=== PATIENT | female | born 1990 | race Caucasian/White ===

== ENCOUNTER 2017-04-03 09:18 | Emergency (ER) | payer OTHER ==
--- NOTE | 2017-04-03 11:15 | ED ORDER SUMMARY ---
..... Patient: RONNIE LAND OrderSheet [facility] VisitID: [id number] [place] [address] 26y, F Registration Date/Time: 04/03/2017 ORDER SHEET Weight: 92.0 kg (stated) Allergies: No Known Drug Allergy GENERAL ORDERS: Mastic Man (Continuous) ([facility] (9:46 PWeiler ER Tech1) UA-Culture if indicated Urgent (04/03/2017 [facility]) (Ack 9:33 PWeiler ER Tech1) (10:00 LWhalen R.N.) BNP Urgent ([facility]/03/2017 [facility] (Ack 9:33 PWeiler ER Tech1) (10:00 LWhalen R.N.) D-Dimer Urgent (04/03/2017 [facility] (Ack 9:33 PWeiler ER Tech1) (10:00 LWhalen R.N.) Amylase Urgent (04/03/2017 [facility] (Ack 9:33 PWeiler ER Tech1) (10:00 LWhalen R.N.) CMP Urgent (04/03/2017 [facility]) (Ack 9:33 PWeiler ER Tech1) (10:00 LWhalen R.N.) CBC w Diff Urgent (04/03/2017 [facility] (Ack 9:33 PWeiler ER Tech1) (10:00 LWhalen R.N.) Urine Drug Screen Urgent (04/03/2017 [facility]) (Ack 9:33 PWeiler ER Tech1) (10:00 LWhalen R.N.) Urine Urgent (04/03/2017 [facility]) (Ack 9:33 PWeiler ER Tech1) (10:00 LWhalen R.N.) TSH Urgent (04/03/2017 [facility]) (Ack 9:33 PWeiler ER Tech1) (10:00 LWhalen R.N.) Ethyl Alcohol Urgent (09:30 04/03/2017 [facility]) (Ack 9:33 PWeiler ER Tech1) (10:00 LWhalen R.N.) Oxygen (2 L/min) (NC) (09:30 04/03/2017 [facility]) (10:00 LWhalen R.N.) Pulse oximeter (:04/03/2017 [facility]) (9:46 PWeiler ER Tech1) EKG - ER Stat (:04/03/2017 [facility]) (9:46 [facility] Vitals (09:04/03/2017 [facility]) (10:00 LWhalen R.N.) MEDICATION ORDERS: Potassium Chloride PO 20 meq (NOW) (10:57 04/03/2017 [facility]) (11:01 Arlen R.N.) Nitrofurantoin PO 100 mg (NOW) (11:14 04/03/2017 [facility]) (11:18 Ashly R.N.) IV FLUIDS: IV NS : initial bolus 1000 mL (1000 mL/hr), then 500 mL/hr for X2 (NOW) (09:30 04/03/2017 [facility]) (10:01 Ashly R.N.) ORDER SHEET NOTES: [Electronically signed by Bhavya King R.N. (11:42 04/03/2017)] [Electronically signed by Henrik Arciniega DO (12:42 04/03/2017)] [Electronically locked/signed by Bhavya King R.N. (11:42 04/03/2017)]
--- NOTE | 2017-04-03 11:15 | ED CLINICAL REPORT ---
Clinical Report - Physicians/Mid Levels [facility] [address] [place] [address] 04/03/2017 9:18 Patient: RONNIE LAND Time Seen: 09:26. Arrived- By ambulance. Historian- patient and EMS personnel. HISTORY OF PRESENT ILLNESS Chief Complaint: ANXIOUS. This started last night. The patient has experienced situational problems related to significant other. (Was drinking last night and states had three beers. Woke up feeling weird like possibly drugged. Was having panic attacks since woke up. Went to work at [employer] and called 911 because she began another panic attack along with tingling in legs and hands states just doesn't feel right.). The patient has had anxiety. Has been depressed (recent break up with her child's father) with fatigue. No suicidal thoughts, self-injury inflicted or hallucinations. The symptoms are described as moderate. Similar symptoms previously: Recent medical care: The patient was seen recently by a health care provider. REVIEW OF SYSTEMS No headache, chest pain, palpitations, abdominal pain or vomiting. No diarrhea, black stools, numbness, fever or sore throat. No cough, difficulty breathing, urinary frequency, skin rash or joint pain. No laceration. The patient has had generalized weakness. All systems otherwise negative, except as recorded above. PAST HISTORY No history of HIV illness, tuberculosis, hypertension or diabetes mellitus. History of migraine headaches. Seizures. Anxiety. Surgeries: No history of previous surgery. SOCIAL HISTORY Smoker- current status unknown. Occasional alcohol use. No drug use. Has social support. ADDITIONAL NOTES The nursing notes have been reviewed. PHYSICAL EXAM Vital Signs: 04/03/2017 09:20 BP: 130/75. HR: 113. RR: 16. O2 saturation: 100%. Temp: 98.9 F. Appearance: Alert. Patient is in mild distress. Eyes: Corneas appear normal to inspection. Pupils equal, round and reactive to light and light. Accommodation normal. EOMs intact. No scleral icterus. Rt Eye: Pupil 5mm. Lt Eye: Pupil 5mm. Neck: Normal inspection. Neck supple. No meningeal signs or carotid bruit. CVS: Tachycardia. Heart sounds normal. Respiratory: Breath sounds normal. Chest nontender. Abdomen: Soft and nontender. Back: No tenderness. Skin: Skin warm and dry. Normal skin color. Normal skin turgor. Extremities: Extremities exhibit normal ROM. No calf tenderness. No lower extremity edema. Psych / Neuro: Oriented X 3. Blunted affect. She is communicative. Cognition normal. Thought process and content normal. Insight and judgement normal. Cranial nerves normal (as tested). No motor deficit. No sensory deficit. Reflexes normal. Reflex exam: right biceps 2+, left biceps 2+, right patellar 2+, left patellar 2+, right Achilles 2+ and left Achilles 2+. LABS, X-RAYS, AND EKG EKG: EKG time: (09:42). Narrow-complex tachycardia (ventricular rate 110). Sinus tachycardia. Normal P waves. Normal RAY. Normal QRS complex. Normal axis. Normal ST and T waves. The study has been interpreted contemporaneously by me. The EKG appears to be a good tracing. Rhythm Strip #1: Sinus tachycardia (ventricular rate 110). Regular rhythm. Narrow QRS complexes. No ectopy. Normal ST segments and T waves. Laboratory Tests: UA-Culture if indicated: (YOHANA: 04/03/2017 09:55) ( MsgRcvd 04/03/2017 10:15) Final results Test Result Flag Units (Reference) URINE COLOR YELLOW URINE APPEARANCE CLEAR URINE GLUCOSE NEGATIVE (NEGATIVE) URINE BILIRUBIN NEGATIVE (NEGATIVE) URINE KETONE NEGATIVE (NEGATIVE) URINE SPECIFIC GRAVITY 1.010 (1.010-1.030) URINE PH 7.5 (5.0-8.0) URINE PROTEIN NEGATIVE (NEGATIVE) URINE UROBILINOGEN 0.2 EU/dL (0.2-1.0) URINE NITRITE NEGATIVE (NEGATIVE) URINE BLOOD 1+ (NEGATIVE) URINE LEUK ESTERASE TRACE (NEGATIVE) URINE RBC 1-3 rbc/hpf (0-1) URINE WBC 1-3 wbc/hpf (0-1) URINE EPITHELIAL CELLS 1-3 EPI/hpf (0-5) URINE BACTERIA TRACE (<1+) (NONE SEEN) URINE COMMENT CULTURE INDICATED URINE CULTURES ARE SET-UP BASED ON THE FOLLOWING CRITERIA:POSITIVE NITRITEPOSITIVE LEUKOCYTE ESTERASEGREATER THAN 10 WHITE BLOOD CELLSMODERATE (2+) OR GREATER BACTERIA Urine: (YOHANA: 04/03/2017 09:55) ( [facility] 04/03/2017 10:09) Final results Test Result Flag Units (Reference) URINE NEGATIVE CBC w Diff: (YOHANA: 04/03/2017 09:50) ( [facility] 04/03/2017 10:09) Final results Test Result Flag Units (Reference) WHITE BLOOD COUNT 11.5 K/uL (4.5-11.5) RED BLOOD COUNT 4.28 M/uL (4.00-5.20) HEMOGLOBIN 10.8 L gm/dL (12.0-16.0) HEMATOCRIT 32.8 L % (36.0-46.0) MEAN CELL VOLUME 77 L fL (80-100) MEAN CORPUSCULAR HGB 25 L pg (26-34) MEAN CORPUSCULAR HGB CONC 33 g/dL (31-37) RED CELL DISTRIBUTION WIDTH 17.2 H % (11.6-14.8) PLATELET COUNT 410 H K/uL (150-400) NEUTROPHIL % 67.0 % (50-75) LYMPH % 26.3 % (25-40) MONO % 5.9 % (3-14) EOSINOPHIL % 0.4 % (0-4) BASOPHIL % 0.4 % (0-2) [id number]: (YOHANA: 04/03/2017 09:50) ( [facility] 04/03/2017 10:19) Final results Test Result Flag Units (Reference) D-DIMER QUANTITATIVE 0.35 ug/mLFEU (0.27-0.52) The primary value of this quantitative assay relates toits negative predictive value (i.e. exclusion) of pulmonaryembolism/deep vein thrombosis/DIC.Elevated levels of d-dimer may also occur with:, age, cancer, inflammation, liver disease,post-op, infection, hematoma, coronary disease, peripheralarteriopathy, bleeding disorders and thrombolytic treatment.Results should be correlated with other clinical andradiological data.Testing Methodology: Latex Immunoassay Urine Drug Screen: (YOHANA: 04/03/2017 09:55) ( [facility] 04/03/2017 10:22) Final results Test Result Flag Units (Reference) AMPHETAMINE/METHAMPHETAMINE NEGATIVE (NEGATIVE) BARBITURATE NEGATIVE (NEGATIVE) BENZODIAZEPINE NEGATIVE (NEGATIVE) CANNABINOID NEGATIVE (NEGATIVE) COCAINE POSITIVE H (NEGATIVE) ECSTASY NEGATIVE (NEGATIVE) METHADONE NEGATIVE (NEGATIVE) OPIATE NEGATIVE (NEGATIVE) The urine drug screen is a qualitative screening test fordrug overdose and abuse. All screen results should beconsidered as presumptive.Drugs screened for are as follows:BenzodiazepinesCocaineAmphetamines/MetamphetaminesTHC (Tetrahydrocannabinol)OpiatesBarbituratesEcstasyMethadonePositive results are unconfirmed. For confirmation, notifythe lab for the specimen to be sent to the reference lab.All confirmations must be performed by a differentmethodology.The ingestion of natural herbal and plant productscontaining Ephedra/Ephedra metabolites can produce in urineone or more substances capable of cross reacting withamphetamine/methamphetamine immunoassays. These testsprovide a preliminary result only. A more specificalternative chemical method must be used to obtain aconfirmed analytical result. BNP: (YOHANA: 04/03/2017 09:50) ( [facility] 04/03/2017 10:31) Final results Test Result Flag Units (Reference) B-TYPE NATRIURETIC PEPTIDE 9.6 pg/ml (5-100) CMP: (YOHANA: 04/03/2017 09:50) ( [facility] 04/[facility] 10:27) Final results Test Result Flag Units (Reference) GLUCOSE 91 mg/dL (70-110) BUN 6 L mg/dL (7-18) CREATININE 1.0 mg/dL (0.6-1.3) Estimated GFR >60 mL/min Estimated GFR- >60 mL/min Note: Persistent reduction over 3 months in eGFR<60 mL/min/1.73 m2 defines CKD. Patients with eGFR values>=60 mL/min/1.73 m2 may also have CKD if evidence ofpersistent proteinuria. Additional information may be foundat www.kidney.org. SODIUM 143 mmol/L (136-145) POTASSIUM 3.1 L mmol/L (3.5-5.1) CHLORIDE 107 mmol/L (98-107) CARBON DIOXIDE 25 mmol/L (21-32) CALCIUM 8.9 mg/dL (8.5-10.1) TOTAL PROTEIN 7.7 g/dL (6.4-8.2) ALBUMIN 4.1 g/dL (3.3-5.0) BILIRUBIN, TOTAL 0.3 mg/dL (0.0-1.0) ALKALINE PHOSPHATASE 79 U/L (46-116) AST (SGOT) 25 U/L (15-37) ALT (SGPT) 30 U/L (12-78) AMYLASE 48 U/L (25-115) ETHYL ALCOHOL 24 H mg/dL (3-10) THYROID STIMULATING HORMONE 0.706 uIU/mL (0.34-3.74) . Microbiology: Urine culture ordered. Pulse Oximetry: 04/03/2017 09:20 O2 saturation: 100%. (FIO2 - room air). Interpretation: normal. PROGRESS AND PROCEDURES Course of Care: Nitrofurantoin 100 mg PO given. Normal Saline 1 liter IVPB given. Pt states she is not aware how cocaine could be in her urin, but it is likely to be causing / exacerbating her anxiety, hyperventilation and tachycardia (alcohol level stil 0.24 despite stating no alcohol since early last night - this is a complicating factor). No chest pain, sob, abdominal pain and no dysuria, but has subtle evidence of UTI - will culture and treat. Patient/family counseled. Disposition: Discharged. Condition: stable and improved. CLINICAL IMPRESSION Anxiety reaction with hyperventilation. Occasional substance abuse- tobacco (cigarettes), cocaine with anxiety. Hypokalemia Possible acute urinary tract infection with cystitis. INSTRUCTIONS Do not work for three days. Drink plenty of fluids. Do not smoke. No alcohol until released. Warnings: Further evaluation is necessary in order to conduct further tests. It is very important to follow up with a physician. GENERAL WARNINGS: Return or contact your physician immediately if your condition worsens or changes unexpectedly, if not improving as expected, or if other problems arise. Prescription Medications: Macrobid 100 mg: take 1 capsule orally every 12 hours for 3 days. No refill. Substitution is permissible. OTC Medications: Acetaminophen (available over the counter): take according to label instructions. Motrin (available over the counter): take according to label instructions. Follow-up: Follow up with your doctor tomorrow. (Electronically signed by Henrik Arciniega DO 04/03/2017 12:42)
--- NOTE | 2017-04-03 11:15 | ED ORDER SUMMARY ---
..... Patient: RONNIE LAND OrderSheet [facility] VisitID: [id number] [place] [address] 26y, F Registration Date/Time: 04/03/2017 ORDER SHEET Weight: 92.0 kg (stated) Allergies: No Known Drug Allergy GENERAL ORDERS: Marine Chronometer Assembler (Continuous) ([facility]03/2017 [facility] (9:46 PWeiler ER Tech1) UA-Culture if indicated Urgent (04/03/2017 [facility]) (Ack 9:33 PWeiler ER Tech1) (10:00 LWhalen R.N.) BNP Urgent ([facility]/03/2017 [facility] (Ack 9:33 PWeiler ER Tech1) (10:00 LWhalen R.N.) D-Dimer Urgent (04/03/2017 [facility]) (Ack 9:33 PWeiler ER Tech1) (10:00 LWhalen R.N.) Amylase Urgent ([facility]/03/2017 [facility] (Ack 9:33 PWeiler ER Tech1) (10:00 LWhalen R.N.) CMP Urgent (04/03/2017 [facility]) (Ack 9:33 PWeiler ER Tech1) (10:00 LWhalen R.N.) CBC w Diff Urgent (04/03/2017 [facility]) (Ack 9:33 PWeiler ER Tech1) (10:00 LWhalen R.N.) Urine Drug Screen Urgent (04/03/2017 [facility]) (Ack 9:33 PWeiler ER Tech1) (10:00 LWhalen R.N.) Urine Urgent (04/03/2017 [facility]) (Ack 9:33 PWeiler ER Tech1) (10:00 LWhalen R.N.) TSH Urgent (04/03/2017 [facility]) (Ack 9:33 PWeiler ER Tech1) (10:00 LWhalen R.N.) Ethyl Alcohol Urgent (09:30 04/03/2017 [facility]) (Ack 9:33 PWeiler ER Tech1) (10:00 LWhalen R.N.) Oxygen (2 L/min) (NC) (09:30 04/03/2017 [facility]) (10:00 LWhalen R.N.) Pulse oximeter (:04/03/2017 [facility]) (9:46 PWeiler ER Tech1) EKG - ER Stat (:04/03/2017 [facility]) (9:46 [facility]) Vitals (09:04/03/2017 [facility]) (10:00 LWhalen R.N.) MEDICATION ORDERS: Potassium Chloride PO 20 meq (NOW) (10:57 04/03/2017 [facility]) (11:01 Arlen R.N.) Nitrofurantoin PO 100 mg (NOW) (11:14 04/03/2017 [facility]) (11:18 Ashly R.N.) IV FLUIDS: IV NS : initial bolus 1000 mL (1000 mL/hr), then 500 mL/hr for X2 (NOW) (09:30 04/03/2017 [facility]) (10:01 Ashly R.N.) ORDER SHEET NOTES: [Electronically signed by Bhavya King R.N. (11:42 04/03/2017)] [Electronically signed by Henrik Arciniega DO (12:42 04/03/2017)] [Electronically locked/signed by Bhavya King R.N. (11:42 04/03/2017)]
--- NOTE | 2017-04-03 11:15 | ED NURSING NOTES ---
Clinical Report - Nurses [facility] [address] [place] [address] 04/03/2017 9:18 Patient: RONNIE LAND TRIAGE Triage time 09:Apr 03 2017. Acuity: LEVEL 3. Chief Complaint: ANXIETY. LUIS COMA SCORE: Hayes Coma Scale: 15- eyes open spontaneously (4); best verbal response- oriented x 4 (5); best motor response- obeys commands (6). --09:34 Bhavya King R.N. 09:20 04/03/17. BP: 130/75. HR: 113. RR: 16. O2 saturation: 100%. Temp: 98.9 F. Pain level now 0/10. --09:34 Bhavya King R.N. Weight: 92 kg stated. Height/Length: 67 inches Per Patient. BMI: 31.8. --09:33 Bhavya King R.N. Medications None. --09:27 Bhavya King R.N. Allergies No Known Drug Allergy. --11:02 Darion Ibarra R.N. History Arrived by EMS. Historian: patient. Onset: just prior to arrival. ( Was drinking last night and states had three beers. Woke up feeling weird like possibly drugged. Was having panic attacks since woke up. Went to work at [employer] and called 911 because she began another panic attack along with tingling in legs and hands states just doesn't feel right. Patient has increased stress currently.). She has had anxiety. PAST MEDICAL HX: Anxiety. Uses an intrauterine device. SOCIAL HX: Current every day heavy tobacco smoker (cigarette)- less than 1 pack per day. Occasional alcohol use. No drug use. SELF HARM ASSESSMENT: A self harm assessment was performed. The patient answered "yes" to the question "Have you recently felt down, depressed, or hopeless?" and "no" to the question "Do you have thoughts of harming or killing yourself?". FALL RISK ASSESSMENT: Fall risk assessment completed. No fall risk identified. NUTRITIONAL RISK ASSESSMENT: The nutritional risk assessment revealed no deficiencies. FUNCTIONAL ASSESSMENT: Functional assessment: no impairments noted. LEARNING NEEDS ASSESSMENT: The learning needs assessment revealed no barriers. ABUSE ASSESSMENT: Abuse assessment: (yes) The patient was asked "Do you feel safe in your home?". SKIN INTEGRITY ASSESSMENT: Skin integrity risk assessment completed. No skin integrity risk identified. --09:34 Bhavya King R.N. PROBLEMS: Migraine Headache. Seizure. --09:30 Bhavya King R.N. ADDITIONAL SURGERIES: no known surgeries. Interventions ID band on patient. --09:34 Bhavya King R.N. PHYSICAL ASSESSMENT Ambulatory to room. GENERAL / NEURO / PSYCH: Alert. Oriented X 4. Appears anxious. Patient's mood/affect appears flat and tearful. Patient appears calm and cooperative. Good eye contact. ( Jaw moving fast with talking, lots of lip smacking. Dilated pupils). CVS: Normal heart rate and rhythm. Capillary refill less than 2 seconds. GI / : Abdomen soft and nontender. Bowel sounds within normal limits. SKIN: Skin intact. Skin is warm and dry. Skin color is within normal limits. --09:36 Bhavya King R.N. NURSING PROGRESS NOTES The initial plan of care for this patient includes an assessment with efforts to address patient positioning, appropriate ambient lighting and comfortable environmental temperature. Pulse oximeter and NIBP monitor placed on patient. Patient gowned. Head of bed elevated 45 degrees. Reassurance given. Call light placed in reach. Side rails up x 1. Bed placed in lowest position. Brakes of bed on. --09:37 Bhavya King R.N. EKG time: (941). EKG was ordered, performed by lesvia oliva and shown to the ED physician. --09:53 Henrik Lopez ER Tech1 09:51 04/03/2017 Site #1 started via IV in the right hand with an 20g angiocath, with aseptic technique and good blood return; one attempt. Blood drawn: rainbow set. Labeled in the presence of the patient and sent to the lab. Saline lock flushed with 10 mL saline. --10:01 Bhavya King R.N. 09:56 04/03/2017 Started bag #1 1000 mL IV Fluids IV NS (Saline); at 1000 mL/hr over 1 hour(s) via site #1 via IV pump. Allergies verified and confirmed 5 rights. IV patency established. IV site checked: no pain, redness, or swelling. IV flushed thoroughly pre- and post-medication administration. --10:01 Bhavya King R.N. 10:30 04/03/17. BP: 119/65. HR: 109. RR: 14. O2 saturation: 100% on nasal cannula at 2 liters/minute. Temp: deferred. Pain level now: 0/10. Additional comments: resting quietly, declined blanket . --10:45 Lidia Christopher R.N. 10:54 04/03/2017 IV Fluids IV NS Bag Change: bag #1 completed. Total amount infused: 1000. STARTED bag #2 (1000 mL) at 500 mL/hr via IV pump. IV patency established. IV site checked: no pain, redness, or swelling. IV flushed thoroughly. --10:54 Darion Ibarra R.N. 11:01 04/03/2017 Potassium Chloride (Potassium Chloride ER) PO Tablets 20 meq given. Allergies verified and confirmed 5 rights. --11:01 Darion Ibarra R.N. 11:18 04/03/2017 Nitrofurantoin PO Tablets 100 mg given. Allergies verified and confirmed 5 rights. --11:18 Bhavya King R.N. 11:32 04/03/17. BP: 119/66. HR: 110. RR: 22. O2 saturation: 100%. Temp: 98.4 F. Pain level now 0/10. 11:00 04/03/17. BP: 119/70. HR: 111. RR: 12. O2 saturation: 100%. 10:45 04/03/17. BP: 119/65. HR: 110. RR: 11. O2 saturation: 100%. 10:30 04/03/17. BP: 119/65. HR: 109. RR: 14. O2 saturation: 100% on nasal cannula at 2 liters/minute. Temp: deferred. Pain level now: 0/10. Additional comments: resting quietly, declined blanket . 10:15 04/03/17. BP: 121/69. HR: 114. RR: 22. O2 saturation: 100%. 10:00 04/03/17. BP: 120/67. HR: 112. RR: 20. O2 saturation: 100%. --11:40 Bhavya King R.N. 11:26 04/03/2017 Site #1 removed upon discharge. Catheter intact. Pressure dressing applied. --11:41 Bhavya King R.N. 11:26 04/03/2017 IV Fluids IV NS Discontinued: bag #2 infused upon discharge. Total amount infused: 400 mL. IV patency established. IV site checked: no pain, redness, or swelling. IV flushed thoroughly. --11:41 Bhavya King R.N. DISPOSITION / DISCHARGE Departure time: 11:Apr 03 2017. Condition at departure: improved. No learning barriers present. Discharge instructions provided and reviewed with the patient. Reviewed warnings. Reviewed medication(s). Treatments reviewed. Reviewed referrals. Patient verbalized understanding. Written instructions provided in Belgian. The patient was discharged home and accompanied by parent. She left the Emergency Department ambulatory and via private vehicle. Parent driving. --11:37 Bhavya King R.N. 11:32 04/03/17. BP: 119/66. HR: 110. RR: 22. O2 saturation: 100%. Temp: 98.4 F. Pain level now 0/10. --11:37 Bhavya King R.N. Locked/Released at 04/03/2017 11:42 by Bhavya King R.N.
--- NOTE | 2017-04-03 11:15 | ED CLINICAL REPORT ---
Clinical Report - Physicians/Mid Levels [facility] [address] [address] 04/03/2017 9:18 Patient: RONNIE LAND Time Seen: 09:26. Arrived- By ambulance. Historian- patient and EMS personnel. HISTORY OF PRESENT ILLNESS Chief Complaint: ANXIOUS. This started last night. The patient has experienced situational problems related to significant other. (Was drinking last night and states had three beers. Woke up feeling weird like possibly drugged. Was having panic attacks since woke up. Went to work at [employer] and called 911 because she began another panic attack along with tingling in legs and hands states just doesn't feel right.). The patient has had anxiety. Has been depressed (recent break up with her child's father) with fatigue. No suicidal thoughts, self-injury inflicted or hallucinations. The symptoms are described as moderate. Similar symptoms previously: Recent medical care: The patient was seen recently by a health care provider. REVIEW OF SYSTEMS No headache, chest pain, palpitations, abdominal pain or vomiting. No diarrhea, black stools, numbness, fever or sore throat. No cough, difficulty breathing, urinary frequency, skin rash or joint pain. No laceration. The patient has had generalized weakness. All systems otherwise negative, except as recorded above. PAST HISTORY No history of HIV illness, tuberculosis, hypertension or diabetes mellitus. History of migraine headaches. Seizures. Anxiety. Surgeries: No history of previous surgery. SOCIAL HISTORY Smoker- current status unknown. Occasional alcohol use. No drug use. Has social support. ADDITIONAL NOTES The nursing notes have been reviewed. PHYSICAL EXAM Vital Signs: 04/03/2017 09:20 BP: 130/75. HR: 113. RR: 16. O2 saturation: 100%. Temp: 98.9 F. Appearance: Alert. Patient is in mild distress. Eyes: Corneas appear normal to inspection. Pupils equal, round and reactive to light and light. Accommodation normal. EOMs intact. No scleral icterus. Rt Eye: Pupil 5mm. Lt Eye: Pupil 5mm. Neck: Normal inspection. Neck supple. No meningeal signs or carotid bruit. CVS: Tachycardia. Heart sounds normal. Respiratory: Breath sounds normal. Chest nontender. Abdomen: Soft and nontender. Back: No tenderness. Skin: Skin warm and dry. Normal skin color. Normal skin turgor. Extremities: Extremities exhibit normal ROM. No calf tenderness. No lower extremity edema. Psych / Neuro: Oriented X 3. Blunted affect. She is communicative. Cognition normal. Thought process and content normal. Insight and judgement normal. Cranial nerves normal (as tested). No motor deficit. No sensory deficit. Reflexes normal. Reflex exam: right biceps 2+, left biceps 2+, right patellar 2+, left patellar 2+, right Achilles 2+ and left Achilles 2+. LABS, X-RAYS, AND EKG EKG: EKG time: (09:42). Narrow-complex tachycardia (ventricular rate 110). Sinus tachycardia. Normal P waves. Normal RAY. Normal QRS complex. Normal axis. Normal ST and T waves. The study has been interpreted contemporaneously by me. The EKG appears to be a good tracing. Rhythm Strip #1: Sinus tachycardia (ventricular rate 110). Regular rhythm. Narrow QRS complexes. No ectopy. Normal ST segments and T waves. Laboratory Tests: UA-Culture if indicated: (YOHANA: 04/03/2017 09:55) ( MsgRcvd 04/03/2017 10:15) Final results Test Result Flag Units (Reference) URINE COLOR YELLOW URINE APPEARANCE CLEAR URINE GLUCOSE NEGATIVE (NEGATIVE) URINE BILIRUBIN NEGATIVE (NEGATIVE) URINE KETONE NEGATIVE (NEGATIVE) URINE SPECIFIC GRAVITY 1.010 (1.010-1.030) URINE PH 7.5 (5.0-8.0) URINE PROTEIN NEGATIVE (NEGATIVE) URINE UROBILINOGEN 0.2 EU/dL (0.2-1.0) URINE NITRITE NEGATIVE (NEGATIVE) URINE BLOOD 1+ (NEGATIVE) URINE LEUK ESTERASE TRACE (NEGATIVE) URINE RBC 1-3 rbc/hpf (0-1) URINE WBC 1-3 wbc/hpf (0-1) URINE EPITHELIAL CELLS 1-3 EPI/hpf (0-5) URINE BACTERIA TRACE (<1+) (NONE SEEN) URINE COMMENT CULTURE INDICATED URINE CULTURES ARE SET-UP BASED ON THE FOLLOWING CRITERIA:POSITIVE NITRITEPOSITIVE LEUKOCYTE ESTERASEGREATER THAN 10 WHITE BLOOD CELLSMODERATE (2+) OR GREATER BACTERIA Urine: (YOHANA: 04/03/2017 09:55) ( [facility] 04/03/2017 10:09) Final results Test Result Flag Units (Reference) URINE NEGATIVE CBC w Diff: (YOHANA: 04/03/2017 09:50) ( [facility] 04/03/2017 10:09) Final results Test Result Flag Units (Reference) WHITE BLOOD COUNT 11.5 K/uL (4.5-11.5) RED BLOOD COUNT 4.28 M/uL (4.00-5.20) HEMOGLOBIN 10.8 L gm/dL (12.0-16.0) HEMATOCRIT 32.8 L % (36.0-46.0) MEAN CELL VOLUME 77 L fL (80-100) MEAN CORPUSCULAR HGB 25 L pg (26-34) MEAN CORPUSCULAR HGB CONC 33 g/dL (31-37) RED CELL DISTRIBUTION WIDTH 17.2 H % (11.6-14.8) PLATELET COUNT 410 H K/uL (150-400) NEUTROPHIL % 67.0 % (50-75) LYMPH % 26.3 % (25-40) MONO % 5.9 % (3-14) EOSINOPHIL % 0.4 % (0-4) BASOPHIL % 0.4 % (0-2) [id number]: (YOHANA: 04/03/2017 09:50) ( [facility] 04/03/2017 10:19) Final results Test Result Flag Units (Reference) D-DIMER QUANTITATIVE 0.35 ug/mLFEU (0.27-0.52) The primary value of this quantitative assay relates toits negative predictive value (i.e. exclusion) of pulmonaryembolism/deep vein thrombosis/DIC.Elevated levels of d-dimer may also occur with:, age, cancer, inflammation, liver disease,post-op, infection, hematoma, coronary disease, peripheralarteriopathy, bleeding disorders and thrombolytic treatment.Results should be correlated with other clinical andradiological data.Testing Methodology: Latex Immunoassay Urine Drug Screen: (YOHANA: 04/03/2017 09:55) ( [facility] 04/03/2017 10:22) Final results Test Result Flag Units (Reference) AMPHETAMINE/METHAMPHETAMINE NEGATIVE (NEGATIVE) BARBITURATE NEGATIVE (NEGATIVE) BENZODIAZEPINE NEGATIVE (NEGATIVE) CANNABINOID NEGATIVE (NEGATIVE) COCAINE POSITIVE H (NEGATIVE) ECSTASY NEGATIVE (NEGATIVE) METHADONE NEGATIVE (NEGATIVE) OPIATE NEGATIVE (NEGATIVE) The urine drug screen is a qualitative screening test fordrug overdose and abuse. All screen results should beconsidered as presumptive.Drugs screened for are as follows:BenzodiazepinesCocaineAmphetamines/MetamphetaminesTHC (Tetrahydrocannabinol)OpiatesBarbituratesEcstasyMethadonePositive results are unconfirmed. For confirmation, notifythe lab for the specimen to be sent to the reference lab.All confirmations must be performed by a differentmethodology.The ingestion of natural herbal and plant productscontaining Ephedra/Ephedra metabolites can produce in urineone or more substances capable of cross reacting withamphetamine/methamphetamine immunoassays. These testsprovide a preliminary result only. A more specificalternative chemical method must be used to obtain aconfirmed analytical result. BNP: (YOHANA: 04/03/2017 09:50) ( [facility] 04/03/2017 10:31) Final results Test Result Flag Units (Reference) B-TYPE NATRIURETIC PEPTIDE 9.6 pg/ml (5-100) CMP: (YOHANA: 04/03/2017 09:50) ( [facility] 04/03/2017 10:27) Final results Test Result Flag Units (Reference) GLUCOSE 91 mg/dL (70-110) BUN 6 L mg/dL (7-18) CREATININE 1.0 mg/dL (0.6-1.3) Estimated GFR >60 mL/min Estimated GFR- >60 mL/min Note: Persistent reduction over 3 months in eGFR<60 mL/min/1.73 m2 defines CKD. Patients with eGFR values>=60 mL/min/1.73 m2 may also have CKD if evidence ofpersistent proteinuria. Additional information may be foundat www.kidney.org. SODIUM 143 mmol/L (136-145) POTASSIUM 3.1 L mmol/L (3.5-5.1) CHLORIDE 107 mmol/L (98-107) CARBON DIOXIDE 25 mmol/L (21-32) CALCIUM 8.9 mg/dL (8.5-10.1) TOTAL PROTEIN 7.7 g/dL (6.4-8.2) ALBUMIN 4.1 g/dL (3.3-5.0) BILIRUBIN, TOTAL 0.3 mg/dL (0.0-1.0) ALKALINE PHOSPHATASE 79 U/L (46-116) AST (SGOT) 25 U/L (15-37) ALT (SGPT) 30 U/L (12-78) AMYLASE 48 U/L (25-115) ETHYL ALCOHOL 24 H mg/dL (3-10) THYROID STIMULATING HORMONE 0.706 uIU/mL (0.34-3.74) . Microbiology: Urine culture ordered. Pulse Oximetry: 04/03/2017 09:20 O2 saturation: 100%. (FIO2 - room air). Interpretation: normal. PROGRESS AND PROCEDURES Course of Care: Nitrofurantoin 100 mg PO given. Normal Saline 1 liter IVPB given. Pt states she is not aware how cocaine could be in her urin, but it is likely to be causing / exacerbating her anxiety, hyperventilation and tachycardia (alcohol level stil 0.24 despite stating no alcohol since early last night - this is a complicating factor). No chest pain, sob, abdominal pain and no dysuria, but has subtle evidence of UTI - will culture and treat. Patient/family counseled. Disposition: Discharged. Condition: stable and improved. CLINICAL IMPRESSION Anxiety reaction with hyperventilation. Occasional substance abuse- tobacco (cigarettes), cocaine with anxiety. Hypokalemia Possible acute urinary tract infection with cystitis. INSTRUCTIONS Do not work for three days. Drink plenty of fluids. Do not smoke. No alcohol until released. Warnings: Further evaluation is necessary in order to conduct further tests. It is very important to follow up with a physician. GENERAL WARNINGS: Return or contact your physician immediately if your condition worsens or changes unexpectedly, if not improving as expected, or if other problems arise. Prescription Medications: Macrobid 100 mg: take 1 capsule orally every 12 hours for 3 days. No refill. Substitution is permissible. OTC Medications: Acetaminophen (available over the counter): take according to label instructions. Motrin (available over the counter): take according to label instructions. Follow-up: Follow up with your doctor tomorrow. (Electronically signed by Henrik Arciniega DO 04/03/2017 12:42)
--- NOTE | 2017-04-03 12:42 | ED DISCHARGE INSTRUCTIONS ---
Patient: RONNIE LAND General Instructions [facility] VisitID: [id number] [place] [address] 26y, F Registration Date/Time: 04/03/2017 Anxiety reaction with hyperventilation. Occasional substance abuse- tobacco (cigarettes), cocaine with anxiety. Hypokalemia INSTRUCTIONS Do not work for three days. Drink plenty of fluids. Do not smoke. No alcohol until released. Warnings: Further evaluation is necessary in order to conduct further tests. It is very important to follow up with a physician. GENERAL WARNINGS: Return or contact your physician immediately if your condition worsens or changes unexpectedly, if not improving as expected, or if other problems arise. Prescription Medications: Macrobid 100 mg: take 1 capsule orally every 12 hours for 3 days. No refill. Substitution is permissible. OTC Medications: Acetaminophen (available over the counter): take according to label instructions. Motrin (available over the counter): take according to label instructions. Follow-up: Follow up with your doctor tomorrow. ADDITIONAL INFORMATION Stress Reaction Anxiety is the feeling we all get when we think something bad might happen. It is a normal response to stress and usually causes only a mild reaction. When anxiety becomes more severe, emotions may interfere with daily life. In some cases, you may not even be aware of what it is youre anxious about! During an anxiety reaction, you may feel like you are helpless, nervous, depressed or irritable. Your body may show signs of anxiety in many ways. You may experience dry mouth, shakiness, dizziness, weakness, trouble breathing, chest pressure, headache, nausea, diarrhea, tiredness, inability to sleep or sexual problems. Home Care: 1) Try to locate the sources of stress in your life. They may not be obvious! These may include: -- Daily hassles of life which pile up (traffic jams, missed appointments, car troubles, etc.) -- Major life changes, both good (new baby, job promotion) and bad (loss of job, loss of loved one) -- Overload: feeling that you have too many responsibilities and can't take care of all of them at once -- Feeling helpless, feeling that your problems are beyond what youre able to solve 2) Notice how your body reacts to stress. Learn to listen to your body signals. This will help you take action before the stress becomes severe. 3) When you can, do something about the source of your stress. (Avoid hassles, limit the amount of change that happens in your life at one time and take a break when you feel overloaded). 4) Unfortunately, many stressful situations cannot be avoided. It is necessary to learn HOW TO MANAGE STRESS better. There are many proven methods that will reduce your anxiety. These include simple things like exercise, good nutrition and adequate rest. Also, there are certain techniques that are helpful: relaxation and breathing exercises, visualization, biofeedback and meditation. For more information about this, consult your doctor or go to a local bookstore and review the many books and tapes available on this subject. Follow Up If you feel that your anxiety is not responding to self-help measures, contact your doctor or make an appointment with a counselor. Get Prompt Medical Attention if any of the following occur: -- Your symptoms get worse -- Chest pain or trouble breathing -- Severe headache not relieved by rest and mild pain reliever -- Rapid or irregular heartbeat, fainting Hyperventilation Syndrome Hyperventilation Syndrome is a condition in which you lose control of your breathing. You may find yourself breathing too fast and/or too deep. This can be triggered by pain, anxiety and emotional stress. If hyperventilation continues for more than a few minutes, it can lead to a number of frightening symptoms, such as: Numbness and tingling of the hands, feet and face Clenching of the fingers or toes Dizziness Feeling like you cannot get enough air Chest pains Fainting or feeling like you are going to faint Once these symptoms begin, it is often hard to stop them because they lead to a cycle of more anxiety and more hyperventilation. It is important to understand that this is not a life-threatening condition and it will pass once you are able to relax. Relaxation and stress management methods can be learned and practiced in advance. These can help in the event of a future attack. Home Care: 1) Rest today until feeling back to normal. 2) If symptoms return: Sit or lie down. Remember that what is happening to you is temporary and will pass. Use the relaxation methods you have learned. It is no longer recommended to breathe into a paper bag. Follow Up with your doctor or as directed by our staff if symptoms recur. Get Prompt Medical Attention if any of the following occur: Increasing shortness of breath Fever of 100.0 F (38 C) or higher, or as directed by your healthcare provider Coughing up blood Chest pain that is made worse with each breath Redness, pain or swelling of the leg Ringing in your ears, Severe headache Weakness or fainting Cocaine and Crack Abuse Cocaine is typically snorted or injected intravenously (IV).Crack is made from cocaine, and can be smoked, causing a more potent effect. Cocaine causes a very powerful psychological dependence. Once you have a psychological dependence, you will do just about anything to get the drug and recreate the feeling it produces. This can increase your risk for any of the following: Overdose that may lead to Loss of your job, your home, your family Accidental injuries to yourself or others while you are under the influence of the drug (in a car or at home) Arrest, conviction and residential sentence for possession of an illegal substance or for driving under the influence Medically, cocaine can affect every organ in your body.It can cause: Chest pain, arrhythmia (abnormal heart beating), heart attack Severe headache, seizures, loss of consciousness, stroke Anxiety, psychosis, confusion Nasal damage (from snorting) Chronic bronchitis (from smoking), shortness of breath HIV infection, Hepatitis B or C, heart infection (from IV use) Kidney failure Home Care: Admit you have a drug problem. Ask for help from your family and close friends. Seek psychotherapy or counseling if depression or anxiety is a problem for you. Join a self-help group for drug abuse. Avoid friends who abuse drugs themselves or tempt you to continue abusing the drug. Eat a balanced diet and begin a regular exercise program. If you continue to use IV cocaine, decrease your risk of receiving or spreading infection by: Only using sterile equipment Do not reuse or share equipment Clean the skin before injecting Follow Up With Your Doctor Or As Advised By Our Staff. Contact One Of The Resources Below For Help. National [place] on Alcoholism and Drug Dependence 630-422-ABMN www.ncadd.org Narcotics Anonymous www.na.org National Alcohol and Substance Abuse Information Center (can tell you about the drug treatment programs in your area) 384.626.7042 www.addictioncareArchetypesions.com Return Promptly Or Contact Your Doctor If Any Of The Following Occurs: Chest, arm, neck or upper back pain Shortness of breath, dizziness, weakness, passing out Agitation, anxiety, unable to sleep Unintended weight loss (more than 10-15 pounds over 6 months) Hallucination, severe depression, thoughts of harming yourself or another Severe headache, seizure; numbness or weakness of the face, one arm or one leg Slurred speech, confusion, trouble speaking, walking or seeing Fever of 100.4F(38C) or higher, or as directed by your healthcare provider Redness, pain or swelling at an injection site Loss of vision or decreased vision Hypokalemia Hypokalemia means a low level of potassium in the blood. This most often occurs in patients who take diuretics (water pills). It can also occur due to severe vomiting or diarrhea. A mild case usually causes no symptoms. It is only found with blood testing. More severe potassium loss causes generalized weakness, muscle or abdominal cramping, heart palpitations (rapid or irregular heartbeats) and low blood pressure. Home Care: 1) Take any potassium supplements prescribed. 2) Eat foods rich in potassium. The highest amount is found in artichoke, baked potatoes, spinach, cantaloupe, honeydew melon, cod, halibut, salmon, and scallops. White, red, or santiago beans are also very good sources. A modest amount is found in orange juice, bananas, carrots, and tomato juice. 3) Certain types of diuretics (water pills), such as Lasix (furosemide), require that you take potassium supplements for as long as you take the diuretic pills. If you are taking a diuretic, discuss the need for potassium supplements with your doctor. Follow Up with your doctor for a repeat blood test within the next week or as advised by our staff. Get Prompt Medical Attention if any of the following occur: -- Increased weakness -- Feeling dizzy -- Irregular heartbeat, extra beats or very fast heart rate -- Fainting spell Bladder Infection,Female (Adult) A bladder infection ("cystitis" or "UTI") usually causes a constant urge to urinate and a burning when passing urine. Urine may be cloudy, smelly or dark. There may be pain in the lower abdomen. A bladder infection occurs when bacteria from the vaginal area enter the bladder opening (urethra). This can occur from sexual intercourse, wearing tight clothing, dehydration and other factors. Home Care: Drink lots of fluids (at least 6-8 glasses a day, unless you must restrict fluids for other medical reasons). This will force the medicine into your urinary system and flush the bacteria out of your body. Avoid sexual intercourse until your symptoms are gone. Avoid caffeine, alcohol and spicy foods. These can irritate the bladder. A bladder infection is treated with antibiotics. You may also be given Pyridium (generic = phenazopyridine) to reduce the burning sensation. This medicine will cause your urine to become a bright orange color. The orange urine may stain clothing. You may wear a pad or panty-liner to protect clothing. Preventing Future Infections: Always wipe from front to back after a bowel movement. Keep the genital area clean and dry. Drink plenty of fluids each day to avoid dehydration. Both sexual partners should wash before intercourse. Urinate right after intercourse to flush out the bladder. Wear cotton underwear and cotton-lined panty hose; avoid tight-fitting pants. If you are on control pills and are having frequent bladder infections, discuss with your doctor. Follow Up: Return to this facility or see your doctor if ALL symptoms are not gone after three days of treatment. Get Prompt Medical Attention if any of the following occur: Fever of 100.4F (38C) or higher, or as directed by your healthcare provider No improvement by the third day of treatment Increasing back or abdominal pain Repeated vomiting; unable to keep medicine down Weakness, dizziness or fainting Vaginal discharge Pain, redness or swelling in the labia (outer vaginal area) Nitrofurantoin, Nitrofurantoin, Macrocrystalline Oral capsule What is this medicine? NITROFURANTOIN (radha MEDRANO toydahiana) is an antibiotic. It is used to treat urinary tract infections. How should I use this medicine? Take this medicine by mouth with a glass of water. Follow the directions on the prescription label. Take this medicine with food or milk. Take your doses at regular intervals. Do not take your medicine more often than directed. Do not stop taking except on your doctor's advice. Talk to your content development specialist regarding the use of this medicine in children. While this drug may be prescribed for selected conditions, precautions do apply. What side effects may I notice from receiving this medicine? Side effects that you should report to your doctor or health clinical care coordinator as soon as possible: allergic reactions like skin rash or hives, swelling of the face, lips, or tongue chest pain cough difficulty breathing dizziness, drowsiness fever or infection joint aches or pains pale or blue-tinted skin redness, blistering, peeling or loosening of the skin, including inside the mouth tingling, burning, pain, or numbness in hands or feet unusual bleeding or bruising unusually weak or tired yellowing of eyes or skin Side effects that usually do not require medical attention (report to your doctor or health clinical care coordinator if they continue or are bothersome): dark urine diarrhea headache loss of appetite nausea or vomiting temporary hair loss What may interact with this medicine? antacids containing magnesium trisilicate probenecid quinolone antibiotics like ciprofloxacin, lomefloxacin, norfloxacin and ofloxacin sulfinpyrazone What if I miss a dose? If you miss a dose, take it as soon as you can. If it is almost time for your next dose, take only that dose. Do not take double or extra doses. Where should I keep my medicine? Keep out of the reach of children. Store at room temperature between 15 and 30 degrees C (59 and 86 degrees F). Protect from light. Throw away any unused medicine after the expiration date. What should I tell my health care provider before I take this medicine? They need to know if you have any of these conditions: anemia diabetes [id number] dehydrogenase deficiency kidney disease liver disease lung disease other chronic illness an unusual or allergic reaction to nitrofurantoin, other antibiotics, other medicines, foods, dyes or preservatives or trying to get breast-feeding What should I watch for while using this medicine? Tell your doctor or health clinical care coordinator if your symptoms do not improve or if you get new symptoms. Drink several glasses of water a day. If you are taking this medicine for a long time, visit your doctor for regular checks on your progress. If you are diabetic, you may get a false positive result for sugar in your urine with certain brands of urine tests. Check with your doctor. You have been given the following additional information: Anxiety Reaction Hyperventilation Syndrome Cocaine And Crack Abuse Hypokalemia Bladder Infection, Female (Adult) Nitrofurantoin, Nitrofurantoin, Macrocrystalline Oral capsule Do not work for three days. (Electronically signed by Henrik Arciniega DO 04/03/2017 12:42)
--- NOTE | 2017-04-03 12:42 | ED MED RECONCILIATION SUMMARY ---
Patient: RONNIE LAND Medication Reconciliation Report [facility] VisitID: [id number] [place] [address] 26y, F Registration Date/Time: 04/03/2017 Weight: 92.0 kg Height/Length: 67 in. BMI: 31.8 ALLERGIES: No Known Drug Allergy The patient's Home Medications are listed below: NONE. The source(s) of the original Home Medication information: Not obtained. The following Medications were given to the patient in the Emergency Department: IV NS IV Fluids bolus 0, then 1000 mL/hr, administered: 04/03/2017 9:56:00 AM Potassium Chloride [PO] PO 20 meq, administered: 04/03/2017 11:01:00 AM Nitrofurantoin [PO] PO 100 mg, administered: 04/03/2017 11:18:00 AM The following Medications were prescribed to the patient: Acetaminophen (available over the counter): take according to label instructions. -- Henrik Arciniega DO Motrin (available over the counter): take according to label instructions. -- Henrik Arciniega DO Macrobid 100 mg: take 1 capsule orally every 12 hours for 3 days. No refill. Substitution is permissible. -- Henrik Arciniega DO
--- NOTE | 2017-04-03 12:42 | ED MAR SUMMARY ---
..... Medication Administration Record [facility] [address] [place] [address] Patient: RONNIE LAND Visit ID: [id number] 26y, F Weight: 92.0 kg Height/Length: 67 in BMI: 31.8 ALLERGIES: No Known Drug Allergy Start 09:56 04/03/2017 Bhavya King R.N., Stop 11:26 04/03/2017 Bhavya King R.N. Medication Administered: IV NS (SALINE), Dose: IV Fluids over 1 hour(s), Rate: 1000 mL/hr, Dispensed: 1000 mL bag, Site: #1 right hand. Medication Ordered: IV NS : initial bolus 1000 mL (1000 mL/hr), then 500 mL/hr for X2 (NOW). Given 11:01 04/03/2017 Darion Ibarra R.N. Medication Administered: POTASSIUM CHLORIDE [PO] (POTASSIUM CHLORIDE ER), Dose: 20 meq Tablets PO. Medication Ordered: Potassium Chloride PO 20 meq (NOW). Given 11:18 04/03/2017 Bhavya King R.N. Medication Administered: NITROFURANTOIN [PO], Dose: 100 mg Tablets PO. Medication Ordered: Nitrofurantoin PO 100 mg (NOW).
--- NOTE | 2017-04-03 12:42 | ED MAR SUMMARY ---
..... Medication Administration Record [facility] [address] [place] [address] Patient: RONNIE LAND Visit ID: [id number] 26y, F Weight: 92.0 kg Height/Length: 67 in BMI: 31.8 ALLERGIES: No Known Drug Allergy Start 09:56 04/03/2017 Bhavya King R.N., Stop 11:26 04/03/2017 Bhavya King R.N. Medication Administered: IV NS (SALINE), Dose: IV Fluids over 1 hour(s), Rate: 1000 mL/hr, Dispensed: 1000 mL bag, Site: #1 right hand. Medication Ordered: IV NS : initial bolus 1000 mL (1000 mL/hr), then 500 mL/hr for X2 (NOW). Given 11:01 04/03/2017 Darion Ibarra R.N. Medication Administered: POTASSIUM CHLORIDE [PO] (POTASSIUM CHLORIDE ER), Dose: 20 meq Tablets PO. Medication Ordered: Potassium Chloride PO 20 meq (NOW). Given 11:18 04/03/2017 Bhavya King R.N. Medication Administered: NITROFURANTOIN [PO], Dose: 100 mg Tablets PO. Medication Ordered: Nitrofurantoin PO 100 mg (NOW).
--- NOTE | 2017-04-03 12:42 | ED MED RECONCILIATION SUMMARY ---
Patient: RONNIE LAND Medication Reconciliation Report [facility] VisitID: [id number] [place] [address] 26y, F Registration Date/Time: 04/03/2017 Weight: 92.0 kg Height/Length: 67 in. BMI: 31.8 ALLERGIES: No Known Drug Allergy The patient's Home Medications are listed below: NONE. The source(s) of the original Home Medication information: Not obtained. The following Medications were given to the patient in the Emergency Department: IV NS IV Fluids bolus 0, then 1000 mL/hr, administered: 04/03/2017 9:56:00 AM Potassium Chloride [PO] PO 20 meq, administered: 04/03/2017 11:01:00 AM Nitrofurantoin [PO] PO 100 mg, administered: 04/03/2017 11:18:00 AM The following Medications were prescribed to the patient: Acetaminophen (available over the counter): take according to label instructions. -- Henrik Arciniega DO Motrin (available over the counter): take according to label instructions. -- Henrik Arciniega DO Macrobid 100 mg: take 1 capsule orally every 12 hours for 3 days. No refill. Substitution is permissible. -- Henrik Arciniega DO
== END 2017-04-03 11:30 | disposition home or self-care (01) ==
LOC: ED SRH 09:18
DX: F45.8 Other somatoform disorders (principal); F43.0 Acute stress reaction; F41.1 Generalized anxiety disorder; E87.6 Hypokalemia; F14.180 Cocaine abuse with cocaine-induced anxiety disorder; F17.210 Nicotine dependence, cigarettes, uncomplicated
CPT/HCPCS: 90004; 90100; 90469; 91320; 91556; 92010; 92530; 92760; 92761; 92762; 92763; 92764; 92765; 92766; 92767; 93070; 93140; 95059